=== PATIENT | female | born 1995 | race African-American/Black ===

== ENCOUNTER 2019-10-01 17:53 | Emergency (ER) | payer OTHER ==
[~2019-10-01] VITALS: Ht 160 cm; Wt 49.9 kg
[~2019-10-01 17:53] MED LIST: BENADRYL25 MG PO; CLEOCIN HCL300 MG PO; COUGH RELI15 MG/5 ML PO; CYCLOBENZAPRINE5 MG PO; DIFLUCAN200 MG PO; FLAGYL500 MG PO; IBUPROFEN 600600 M1 PO; MICROGESTIN FE1 EACH PO; NOHOMEMEDICATIONS; NORCO 5-325 TA1 EACH PO
[2019-10-01 18:00] VITALS: BP 124/98
[2019-10-01] MEDS ORDERED: PROAIR HFA8.5 GM INH (18:25)
[2019-10-01] MEDS ORDERED: TESSALON PERLE100 MG PO (18:25)
== END 2019-10-01 18:38 | disposition home or self-care (01) ==
LOC: ER 17:53
DX: J06.9 Acute upper respiratory infection, unspecified (principal); Z90.49 Acquired absence of other specified parts of digestive tract; Z98.890 Other specified postprocedural states

== ENCOUNTER 2019-12-09 11:36 | Emergency (ER) | payer OTHER ==
[~2019-12-09] VITALS: Ht 160 cm; Wt 50.4 kg
[~2019-12-09 11:36] MED LIST changes: +PROAIR HFA8.5 GM INH; +TESSALON PERLE100 MG PO
[2019-12-09 11:58] LABS: URINE BILIRUBIN NEGATIVE (Negative); URINE BLOOD NEGATIVE (Negative); URINE CLARITY CLEAR; URINE COLOR YELLOW; URINE GLUCOSE-RANDOM* NEGATIVE (Negative); URINE KETONES 1+ (Negative); URINE LEUKOCYTES-REFLEX NEGATIVE (Negative); URINE NITRITE-REFLEX NEGATIVE (Negative); URINE PROTEIN (DIPSTICK) TRACE (Negative); URINE UROBILINOGEN 0.2 E.U./dl (0.2-1.0)
[2019-12-09 12:07] LABS: HEMOGLOBIN 15.9 gm/dL (12.0-15.0)
[2019-12-09 12:15] LABS: CALCIUM 9.4 mg/dL (8.5-10.1); CREATININE 1.1 mg/dL (0.6-1.0); POTASSIUM 3.2 mmol/L (3.5-5.1)
[2019-12-09 12:21] LABS: ALBUMIN 4.3 g/dL (3.4-5.0); DIRECT BILIRUBIN 0.1 mg/dL (<0.1-0.2); TOTAL BILIRUBIN 0.5 mg/dL (<0.1-1.0); TOTAL PROTEIN 8.4 g/dL (6.4-8.2)
[2019-12-09 12:25] LABS: HEMATOCRIT 47.2 % (37.0-47.0); MCH 28.4 pg (26.0-34.0); MCHC 33.6 g/dL (28.0-37.0); MCV 84.6 fL (80.0-100.0); PLATELET COUNT 187 thou/uL (150-400); RBC 5.57 mil/uL (4.20-5.00); RDW 13.4 % (10.5-14.5); WBC 7.4 thou/uL (4.0-11.0)
[2019-12-09 13:18] LABS: ABSOLUTE NEUTROPHILS 6.1 thou/uL (1.4-8.2)
[2019-12-09] MEDS ORDERED: IBUPROFEN 600600 M1 PO (13:35)
[2019-12-09] MEDS ORDERED: ZOFRAN ODT4 MG PO (13:35)
[2019-12-09 14:20] VITALS: BP 105/68
== END 2019-12-09 14:20 | disposition home or self-care (01) ==
LOC: ER 11:36
PROVIDERS: Emergency Medicine
DX: J10.1 Influenza due to other identified influenza virus with other respiratory manifestations (principal); E87.6 Hypokalemia; R11.2 Nausea with vomiting, unspecified; Z90.49 Acquired absence of other specified parts of digestive tract; Z98.890 Other specified postprocedural states

== ENCOUNTER 2020-04-04 15:14 | Emergency (ER) | payer OTHER ==
[~2020-04-04] VITALS: Ht 160 cm; Wt 47.2 kg
[~2020-04-04 15:14] MED LIST changes: +ZOFRAN ODT4 MG PO
[2020-04-04 15:24] VITALS: BP 119/85
[2020-04-04] MEDS ORDERED: PENICILLIN V P500 MG PO (15:46)
[2020-04-04] MEDS ORDERED: NAPROSYN500 MG PO (15:46)
[2020-04-04] MEDS ORDERED: NORCO 5-325 TA1 EAC1 PO (15:46)
== END 2020-04-04 15:53 | disposition home or self-care (01) ==
LOC: ER 15:14
DX: K08.89 Other specified disorders of teeth and supporting structures (principal); K01.1 Impacted teeth; Z90.49 Acquired absence of other specified parts of digestive tract; Z98.890 Other specified postprocedural states; Z79.899 Other long term (current) drug therapy

== ENCOUNTER 2020-11-14 11:24 | Emergency (ER) | payer OTHER ==
[~2020-11-14] VITALS: Ht 160 cm; Wt 50.8 kg
[~2020-11-14 11:24] MED LIST changes: +ERYTHROMYCIN E3.5 G3 OPHTHALMIC; +KEFLEX500 M1 PO; +NAPROSYN500 MG PO; +NORCO 5-325 TA1 EAC1 PO; +PENICILLIN V P500 MG PO
[2020-11-14 11:25] VITALS: BP 129/65
[2020-11-14 12:08] LABS: URINE BILIRUBIN NEGATIVE (Negative); URINE BLOOD NEGATIVE (Negative); URINE CLARITY CLEAR; URINE COLOR YELLOW; URINE GLUCOSE-RANDOM* NEGATIVE (Negative); URINE KETONES NEGATIVE (Negative); URINE LEUKOCYTES-REFLEX NEGATIVE (Negative); URINE NITRITE-REFLEX NEGATIVE (Negative); URINE PROTEIN (DIPSTICK) NEGATIVE (Negative); URINE UROBILINOGEN 0.2 E.U./dl (0.2-1.0)
== END 2020-11-14 12:32 | disposition home or self-care (01) ==
LOC: ER 11:24
PROVIDERS: Nurse Practitioner
DX: Z20.2 Contact with and (suspected) exposure to infections with a predominantly sexual mode of transmission (principal); N89.8 Other specified noninflammatory disorders of vagina; Z98.51 Tubal ligation status; Z90.49 Acquired absence of other specified parts of digestive tract; Z90.89 Acquired absence of other organs

== ENCOUNTER 2021-04-21 09:40 | Emergency (ER) | payer OTHER ==
[~2021-04-21] VITALS: Ht 160 cm; Wt 49.9 kg
[2021-04-21 10:07] LABS: URINE BILIRUBIN NEGATIVE (Negative); URINE BLOOD NEGATIVE (Negative); URINE CLARITY CLEAR; URINE COLOR YELLOW; URINE GLUCOSE-RANDOM* NEGATIVE (Negative); URINE KETONES NEGATIVE (Negative); URINE LEUKOCYTES-REFLEX TRACE (Negative); URINE NITRITE-REFLEX NEGATIVE (Negative); URINE PROTEIN (DIPSTICK) NEGATIVE (Negative); URINE SPECIFIC GRAVITY 1.015 (1.005-1.035)
[2021-04-21] MEDS ORDERED: FLAGYL500 M1 PO (11:34)
[2021-04-21 11:38] VITALS: BP 124/76
== END 2021-04-21 11:39 | disposition home or self-care (01) ==
LOC: ER 09:40
PROVIDERS: Emergency Medicine
DX: N76.0 Acute vaginitis (principal); Z20.822 Contact with and (suspected) exposure to COVID-19; Z98.51 Tubal ligation status; Z98.890 Other specified postprocedural states; Z90.49 Acquired absence of other specified parts of digestive tract

== ENCOUNTER 2021-08-10 13:10 | Emergency (ER) | payer OTHER ==
[~2021-08-10] VITALS: Ht 160 cm; Wt 50.8 kg
[~2021-08-10 13:10] MED LIST changes: +FLAGYL500 M1 PO
[2021-08-10 15:00] LABS: ABSOLUTE NEUTROPHILS 4.7 thou/uL (1.4-8.2); BASOPHILS 0.6 % (0.0-2.0); EOSINOPHILS 0.8 % (0.0-3.0); HEMATOCRIT 41.9 % (37.0-47.0); HEMOGLOBIN 13.5 gm/dL (12.0-15.0); LYMPHOCYTES 22.3 % (24.0-44.0); MCH 28.3 pg (26.0-34.0); MCHC 32.4 g/dL (28.0-37.0); MCV 87.6 fL (80.0-100.0); MONOCYTES 9.2 % (1.0-8.0); PLATELET COUNT 224 thou/uL (150-400); POLYS 67.1 % (36.0-66.0); RBC 4.78 mil/uL (4.20-5.00); RDW 13.9 % (10.5-14.5); WBC 7.1 thou/uL (4.0-11.0)
[2021-08-10 15:12] LABS: ANION GAP 10 mmol/L (7-16); BUN 12 mg/dL (7-18); CALCIUM 8.5 mg/dL (8.5-10.1); CHLORIDE 105 mmol/L (98-107); CO2 28 mmol/L (21-32); CREATININE 0.7 mg/dL (0.6-1.0); GLUCOSE 86 mg/dL (74-106); SODIUM 143 mmol/L (136-145)
[2021-08-10 15:22] LABS: ALBUMIN 3.6 g/dL (3.4-5.0); SGOT 21 U/L (15-37); SGPT 18 U/L (30-65); TOTAL BILIRUBIN 0.5 mg/dL (0.2-1.0); TOTAL PROTEIN 6.5 g/dL (6.4-8.2)
[2021-08-10 16:24] VITALS: BP 175/53
--- NOTE | 2021-08-10 16:24 | EKG ---
[place] [address] [facility] [employer] [place] [address] ELECTROCARDIOGRAM REPORT Name: JOANNE VARNER Room #: [id number] Admission: 08/10/21 Attend Phys: Discharge: Date of : [birth year] Report #: [id number] [facility] ED Test Date: 2021-08-10 Test Time: 13:16:54 Pat Name: JOANNE VARNER Department: Room: Gender: F Prospecting Observer: antwan : 1995 Requested By: Alexandro Li Order Number: [id number] MD: Bladimir Zaragoza Measurements Intervals Admire Rate: 71 P: 49 IN: 135 QRS: 63 QRSD: 76 T: 37 QT: 365 QTc: 397 Interpretive Statements Sinus rhythm Poor septal R wave progression Compared to ECG 07/05/2015 20:16:08 Sinus tachycardia no longer present Electronically Signed On 08-10-2021 16:24:40 CDT by Bladimir Zaragoza [email or web address] <ELECTRONICALLY SIGNED> By: Bladimir Zaragoza MD, [facility] 08/10/21 1624 1316 1316 Bladimir Zaragoza MD, FACC /EPI
== END 2021-08-10 17:23 | disposition home or self-care (01) ==
LOC: ER 13:10
PROVIDERS: Emergency Medicine
DX: R07.89 Other chest pain (principal); Z20.822 Contact with and (suspected) exposure to COVID-19

== ENCOUNTER 2021-10-09 18:52 | Emergency (ER) | payer OTHER ==
[~2021-10-09] VITALS: Ht 160 cm; Wt 50.8 kg
[2021-10-09] MEDS ORDERED: METRONIDAZOLE500 M4 PO (20:53)
[2021-10-09 21:32] VITALS: BP 141/84
== END 2021-10-09 21:48 | disposition home or self-care (01) ==
LOC: ER 18:52
DX: N76.0 Acute vaginitis (principal); A59.01 Trichomonal vulvovaginitis; B96.89 Other specified bacterial agents as the cause of diseases classified elsewhere